=== PATIENT | male | born 1960 | race African-American/Black ===

== ENCOUNTER 2021-08-29 08:21 | Inpatient (IN) | payer MEDICAID ==
[~2021-08-29] VITALS: Ht 188 cm; Wt 73.7 kg
[2021-08-29] MEDS ORDERED: ACETAMINOPHEN 325MG TABLET PO ONE (09:15)
[2021-08-29] MEDS ORDERED: IBUPROFEN 400MG TABLET PO ONE (09:15)
[2021-08-29 13:30] LABS: HEMATOCRIT. 41.1 % (42.0-52.0); HEMOGLOBIN. 13.8 g/dL (14.0-18.0); MEAN CORPUSCULAR HEMOGLOBIN 27.4 pg (28.0-32.0); MEAN CORPUSCULAR VOLUME 81.8 fL (80.0-94.0); PLATELET 92 x1000/uL (130-400); RED BLOOD CELL COUNT 5.03 mill/uL (4.7-6.1); RED CELL DISTRIBUTION WIDTH 15.9 % (11.6-14.6)
[2021-08-29 13:42] LABS: CHLORIDE 102 mEq/L (98-107)
[2021-08-29 13:48] LABS: PLATELET ESTIMATE DECREASED
[2021-08-29] MEDS ORDERED: ACETAMINOPHEN 325MG TABLET PO PRN (23:30)
[2021-08-30] VITALS (7 sets, daily range): BP systolic 136–164; BP diastolic 63–94
[2021-08-30] MEDS: HYDROCODONE/ACETAMINOPHEN 10/325MG TABLET PO PRN ×3 (00:15→18:26)
[2021-08-30 07:50] LABS: HEMATOCRIT. 43.5 % (42.0-52.0); HEMOGLOBIN. 14.8 g/dL (14.0-18.0); MEAN CORPUSCULAR HEMOGLOBIN 28.1 pg (28.0-32.0); MEAN CORPUSCULAR VOLUME 82.7 fL (80.0-94.0); MEAN PLATELET VOLUME 8.8 fl (7.4-10.4); PLATELET 90 x1000/uL (130-400); RED BLOOD CELL COUNT 5.25 mill/uL (4.7-6.1); RED CELL DISTRIBUTION WIDTH 16.5 % (11.6-14.6)
[2021-08-30 07:53] LABS: CHLORIDE 100 mEq/L (98-107)
[2021-08-30] MEDS ORDERED: ENOXAPARIN 40MG/0.4ML SYR SUBCUT SCH (09:00)
[2021-08-30] MEDS: AMLODIPINE 10MG TABLET PO SCH (12:03)
[2021-08-30 12:45] LABS: PLATELET ESTIMATE DECREASED
[2021-08-30 14:58] LABS: *COCAINE SCREEN URINE PRESUMTIVE POSITIVE (NEGATIVE); METHADONE URINE SCREEN NEGATIVE (NEGATIVE); OPIATES URINE SCREEN PRESUMTIVE POSITIVE (NEGATIVE)
[2021-08-30 14:59] LABS: *AMPHETAMINES SCREEN URINE NEGATIVE (NEGATIVE); *BARBITURATES SCREEN URINE NEGATIVE (NEGATIVE); *BENZODIAZEPINES SCREEN URINE NEGATIVE (NEGATIVE); CANNABINOID URINE SCREEN PRESUMTIVE POSITIVE (NEGATIVE); PHENCYCLIDINE URINE SCREEN NEGATIVE (NEGATIVE)
[2021-08-30] MEDS ORDERED: NALOXONE HCL 0.4MG/ML VIAL IV PRN (22:30)
[2021-08-31] VITALS: BP 144/84
[2021-08-31] MEDS: HYDROCODONE/ACETAMINOPHEN 10/325MG TABLET PO PRN ×3 (00:15→18:30)
[2021-08-31 04:00] VITALS: BP 157/94
[2021-08-31 07:37] VITALS: BP 136/77
[2021-08-31] MEDS: AMLODIPINE 10MG TABLET PO SCH (08:39)
[2021-08-31 11:59] VITALS: BP 142/83
[2021-08-31 13:07] LABS: % CD 3 POS. LYMPHOCYTES 38.4 % (57.5-86.2); % CD 4 POS. LYMPHOCYTES 5.7 % (30.8-58.5); % CD 8 POS. LYMPH 32.1 % (12.0-35.5); ABSOLUTE CD 3 230 /uL (622-2402); ABSOLUTE CD 4 HELPER 34 /uL (359-1519); ABSOLUTE CD 8 SUPPRESSOR 193 /uL (109-897); ABSOLUTE LYMPHOCYTES 0.6 x10E3/uL (0.7-3.1); ABSOLUTE NEUTROPHILS 9.3 x10E3/uL (1.4-7.0); BASOPHILS 0 % (Not Estab.); CD4/CD8 RATIO 0.18 (0.92-3.72); HEMATOCRIT 43.3 % (37.5-51.0); HEMATOLOGY COMMENT Note: (.); HEMOGLOBIN 14.9 g/dL (13.0-17.7); IMMATURE GRANULOCYTES 0 % (Not Estab.); LYMPHOCYTES 5 % (Not Estab.); MEAN CORPUSCULAR HEMOGLOBIN 27.7 pg (26.6-33.0); MEAN CORPUSCULAR HGB CONC. 34.4 g/dL (31.5-35.7); MEAN CORPUSCULAR VOLUME 81 fL (79-97); MONOCYTES 9 % (Not Estab.); NEUTROPHILS 86 % (Not Estab.); PLATELETS 84 x10E3/uL (150-450); RBC 5.38 x10E6/uL (4.14-5.80); RED CELL DISTRIBUTION WIDTH 14.8 % (11.6-15.4); WBC 10.9 x10E3/uL (3.4-10.8)
[2021-08-31 16:00] VITALS: BP 138/65
[2021-08-31 20:00] VITALS: BP 132/61
[2021-09-01] VITALS: BP 114/74
[2021-09-01] MEDS: HYDROCODONE/ACETAMINOPHEN 10/325MG TABLET PO PRN ×3 (03:38→20:27)
[2021-09-01 04:00] VITALS: BP 144/81
[2021-09-01 07:23] LABS: CHLORIDE 98 mEq/L (98-107)
[2021-09-01 08:00] VITALS: BP 142/84
[2021-09-01 08:17] LABS: MEAN CORPUSCULAR HEMOGLOBIN 28.2 pg (28.0-32.0); MEAN CORPUSCULAR VOLUME 82.6 fL (80.0-94.0); MEAN PLATELET VOLUME 8.2 fl (7.4-10.4); PLATELET 102 x1000/uL (130-400); RED BLOOD CELL COUNT 4.34 mill/uL (4.7-6.1); RED CELL DISTRIBUTION WIDTH 16.2 % (11.6-14.6)
[2021-09-01 08:21] LABS: HEMOGLOBIN. 12.3 g/dL (14.0-18.0)
[2021-09-01 08:22] LABS: HEMATOCRIT. 35.9 % (42.0-52.0)
[2021-09-01] MEDS: AMLODIPINE 10MG TABLET PO SCH (08:45)
[2021-09-01 12:00] VITALS: BP 126/72
[2021-09-01 16:00] VITALS: BP 121/76
[2021-09-01 16:53] LABS: PLATELET ESTIMATE DECREASED
[2021-09-01 20:00] VITALS: BP 156/80
[2021-09-01] MEDS: SULFAMETHOXAZOLE/TRIMETHOPRIM 800/160MG TABLET PO SCH (20:31)
[2021-09-01] MEDS: METOPROLOL TARTRATE 50MG TABLET PO SCH (20:53)
[2021-09-02] VITALS: BP 139/77
[2021-09-02 04:00] VITALS: BP 140/75
[2021-09-02] MEDS: HYDROCODONE/ACETAMINOPHEN 10/325MG TABLET PO PRN ×3 (05:41→22:04)
[2021-09-02 07:47] LABS: HEMATOCRIT. 34.8 % (42.0-52.0); HEMOGLOBIN. 11.8 g/dL (14.0-18.0); MEAN CORPUSCULAR HEMOGLOBIN 27.8 pg (28.0-32.0); MEAN CORPUSCULAR VOLUME 82.1 fL (80.0-94.0); MEAN PLATELET VOLUME 7.9 fl (7.4-10.4); PLATELET 119 x1000/uL (130-400); RED BLOOD CELL COUNT 4.24 mill/uL (4.7-6.1); RED CELL DISTRIBUTION WIDTH 16.5 % (11.6-14.6)
[2021-09-02 08:00] VITALS: BP 130/72
[2021-09-02 08:10] LABS: CHLORIDE 98 mEq/L (98-107)
[2021-09-02] MEDS: AMLODIPINE 10MG TABLET PO SCH (09:27)
[2021-09-02] MEDS: METOPROLOL TARTRATE 50MG TABLET PO SCH ×2 (09:27→22:03)
[2021-09-02] MEDS: SULFAMETHOXAZOLE/TRIMETHOPRIM 800/160MG TABLET PO SCH ×2 (09:28→22:03)
[2021-09-02 11:54] VITALS: BP_SYST 112; BP_SYST 128; BP_DIAS 56; BP_DIAS 63
[2021-09-02 12:53] LABS: PLATELET ESTIMATE SLIGHTLY DECREASED
[2021-09-02 16:00] VITALS: BP 125/65
[2021-09-02 20:00] VITALS: BP 123/72
[2021-09-03] VITALS: BP 112/61
[2021-09-03 04:00] VITALS: BP 131/70
[2021-09-03] MEDS: SULFAMETHOXAZOLE/TRIMETHOPRIM 800/160MG TABLET PO SCH (09:20)
[2021-09-03] MEDS: AMLODIPINE 10MG TABLET PO SCH (09:20)
[2021-09-03] MEDS: METOPROLOL TARTRATE 50MG TABLET PO SCH (09:21)
[2021-09-03] MEDS: HYDROCODONE/ACETAMINOPHEN 10/325MG TABLET PO PRN (11:23)
[2021-09-03 12:42] VITALS: BP 135/69
== END 2021-09-03 13:20 | DRG 351 ==
LOC: ER 08:36 → 6EST 14:39 → EDUNIT# 14:39 → ENRESERV 15:36 → CANRESERV 15:36 → ENRESERV 19:41
PROVIDERS: ADMIT Internal Medicine; ATTEND Internal Medicine
DX: M87.851 Other osteonecrosis, right femur (principal); D69.6 Thrombocytopenia, unspecified; E44.0 Moderate protein-calorie malnutrition; E87.1 Hypo-osmolality and hyponatremia; M87.852 Other osteonecrosis, left femur; F17.210 Nicotine dependence, cigarettes, uncomplicated; G40.909 Epilepsy, unspecified, not intractable, without status epilepticus; Z20.822 Contact with and (suspected) exposure to COVID-19; I10 Essential (primary) hypertension; Z79.899 Other long term (current) drug therapy; Z71.6 Tobacco abuse counseling; Z68.20 Body mass index [BMI] 20.0-20.9, adult; Z88.0 Allergy status to penicillin
CPT/HCPCS: 36415; 72192; 73522; 73552; 73564; 80048; 80053; 80305; 85025; 86359; 86360; 86850; 86900; 87070; 87077; 87186; 87426; 99285